=== PATIENT | male | born 1985 | race Caucasian/White ===

== ENCOUNTER 2020-02-15 12:20 | Observation (INO) | payer MEDICAID ==
[~2020-02-15] VITALS: Ht 180.3 cm; Wt 93.0 kg
[2020-02-15 14:26] LABS: CALC OSMOLALITY 272 mosm/kg (275-300); CARBON DIOXIDE 26.7 mmol/L (21.0-32.0); CHLORIDE - SERUM 103 mmol/L (98-107); GLUCOSE 97 mg/dL (74-106); SODIUM 137 mmol/L (136-145); UREA NITROGEN 11 mg/dL (7-18); eGFR NON AFRICAN AMERICAN 90 mL/min (90-120)
[2020-02-15 14:27] LABS: APTT 28.6 SECONDS (22.8-39.4)
[2020-02-15 14:28] LABS: INR 1.04 (0.85-1.17); PROTIME 13.5 SECONDS (11.6-15.0)
[2020-02-15 14:31] VITALS: BP 142/88
[2020-02-15 14:32] LABS: ALBUMIN 4.2 g/dL (3.4-5.0); ALKALINE PHOSPHATASE 77 U/L (30-120); ALT (SGPT) 24 U/L (10-68); BILIRUBIN - TOTAL 0.44 mg/dL (0.2-1.3); PROTEIN - SERUM 7.8 g/dL (6.4-8.2)
[2020-02-15 14:53] LABS: BASOPHILS 0.2 % (0-2); EOSINOPHILS 1.1 % (0-7); HEMATOCRIT 42.9 % (42.0-54.0); IMMATURE GRANULOCYTES 0.3 % (0-5); LYMPHOCYTES 19.9 % (15-50); MCH 29.9 pg (26.0-34.0); MCHC 32.6 g/dL (31.0-37.0); MCV 91.7 fL (80.0-100.0); MEAN PLATELET VOLUME 10.5 fL (7.4-10.4); MONOCYTES 7.6 % (2-11); NEUTROPHILS 70.9 % (40-80); PLATELET COUNT 269 10x3/uL (130-400); RBC 4.68 10x6/uL (4.20-6.10); RDW 13.4 % (11.5-14.5); WBC 10.6 10x3/uL (4.8-10.8)
--- NOTE | 2020-02-15 15:00 | NUR ---
ARRIVES TO UNIT PER W/C, WILLIS WRAP DRESSING TO L LOWER ARM, IV TO RFA, DRESSED IN STREET CLOTHES, WILL GET PT CHANGED AND CONSENTS DONE
[2020-02-15 15:25] VITALS: BP 142/79; Ht 180.3 cm; Wt 93.0 kg
--- NOTE | 2020-02-15 18:11 | NUR ---
TAKEN TO SURGERY PER BED, PREOP MEDS GIVEN AND PT GAVE SELF HIBACLENS BATH
[2020-02-15] MEDS ORDERED: KEFLEX500 MG PO (19:33)
[2020-02-15] MEDS ORDERED: OXYCODONE HCL5 M1 PO (19:33)
[2020-02-15] MEDS ORDERED: VISTARIL50 MG PO (19:33)
--- NOTE | 2020-02-15 20:15 | NUR ---
RECEIVED PATIENT FROM SURGERY. LEFT ULNA REPAIR THAT IS CURRENTLY IN A SLING AND HAS WILLIS WRAP TO AFFECTED AREA. FINGERS ARE WARM AND PATIENT WIGGLES ON COMMAND. VITAL SIGNS ARE STABLE, SEE FLOW SHEET. DENIES PAIN AT THIS TIME. DENIES NEEDS AT THIS TIME. PROVIDED EDUCATION TO PATIENT ABOUT WAKE UP BED. PATIENT VERBALIZES UNDERSTANDING.
[2020-02-15 20:20] VITALS: BP 151/85
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
--- NOTE | 2020-02-15 20:36 | NUR ---
CALL TO DOCTOR GRANDE CONCERNING IF PATIENT IS WAKE UP BED OR IF HE IS STAYING OVER NIGHT. DR. GRANDE STATES THAT HE IS A WAKE UP BED AND HE CAN BE DC'D TONIGHT.
--- NOTE | 2020-02-15 21:00 | NUR ---
PATIENT DISCHARGED WITH [facility]. DISCHARGE INSTRUCTIONS WITH PATIENT WELL PRESCRIPTIONS.
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
== END 2020-02-15 21:35 ==
LOC: D.ER 12:20 → OBSVTIME 14:17 → D.MS 14:17
PROVIDERS: Family Medicine; ADMIT Orthopaedic Surgery; ATTEND Orthopaedic Surgery
DX: S52.202A Unspecified fracture of shaft of left ulna, initial encounter for closed fracture (principal); Y08.02XA Assault by strike by baseball bat, initial encounter

== ENCOUNTER 2020-02-23 14:40 | Inpatient (IN) | payer MEDICAID ==
[~2020-02-23] VITALS: Ht 180.3 cm; Wt 90.7 kg
[~2020-02-23 14:40] MED LIST: KEFLEX500 MG PO; OXYCODONE HCL5 M1 PO; VISTARIL50 MG PO
[2020-02-23 15:41] LABS: BASOPHILS 0.2 % (0-2); EOSINOPHILS 2.9 % (0-7); HEMATOCRIT 42.8 % (42.0-54.0); HEMOGLOBIN 13.8 g/dL (13.5-17.5); IMMATURE GRANULOCYTES 0.3 % (0-5); LYMPHOCYTES 23.7 % (15-50); MCH 29.9 pg (26.0-34.0); MCHC 32.2 g/dL (31.0-37.0); MCV 92.6 fL (80.0-100.0); MEAN PLATELET VOLUME 9.3 fL (7.4-10.4); MONOCYTES 7.1 % (2-11); NEUTROPHILS 65.8 % (40-80); PLATELET COUNT 297 10x3/uL (130-400); RBC 4.62 10x6/uL (4.20-6.10); RDW 13.4 % (11.5-14.5); WBC 9.7 10x3/uL (4.8-10.8)
[2020-02-23 16:02] LABS: APTT 32.8 SECONDS (22.8-39.4); INR 1.02 (0.85-1.17); PROTIME 13.4 SECONDS (11.6-15.0)
[2020-02-23 16:07] LABS: ALBUMIN 3.3 g/dL (3.4-5.0); ALKALINE PHOSPHATASE 80 U/L (30-120); ALT (SGPT) 23 U/L (10-68); BILIRUBIN - TOTAL 0.22 mg/dL (0.2-1.3); CALC OSMOLALITY 276 mosm/kg (275-300); CALCIUM 8.5 mg/dL (8.5-10.1); CHLORIDE - SERUM 106 mmol/L (98-107); CREATININE - SERUM 0.9 mg/dL (0.6-1.3); GLUCOSE 86 mg/dL (74-106); POTASSIUM - SERUM 4.3 mmol/L (3.5-5.1); PROTEIN - SERUM 7.2 g/dL (6.4-8.2); SODIUM 140 mmol/L (136-145); UREA NITROGEN 9 mg/dL (7-18); eGFR NON AFRICAN AMERICAN > 90 mL/min (90-120)
[2020-02-23 16:37] VITALS: BP 130/87; BMI 27.9
--- NOTE | 2020-02-23 17:07 | NUR ---
GOING TO THE OR VIA BED.
--- NOTE | 2020-02-23 18:01 | NUR ---
PT HANDS AND FINGER NAILS NOTABLY DIRTY. FULL BETADINE SCRUB AND PAINT FROM UPPER ARM TO FINGERTIPS CIRCUMFERENTIALLY. SMALL STRAIGHT PUNCTURE WOUND NOTED BESIDE OPEN WOUND. DRIED BLOOD NOTED ON LEFT SIDE OF PT HEAD. PT MAINTAINS THAT HE FELL LAST NIGHT AND OPENED THE WOUND IN ITS ENTIRETY.
--- NOTE | 2020-02-23 18:45 | NUR ---
BACK FROM SURGERY, CALCINE FURNACE TENDER STARTED. RT ARM IS IN A SLING, CAN MOVE HIS FINGERS.
--- NOTE | 2020-02-23 20:23 | NUR ---
REC'D IN BED EYES CLOSED RESP. DEEP AND EVEN.POSTERIOR SPLINT ACEWRAP DRSG. DRY AND INTACT WILL CONTINUE TO MONITOR FOR ANY CHGES IN NEUROVASCULAR STATUS AND FOLLOW CURRENT PLAN OF CARE.
[2020-02-23 20:37] VITALS: BP 131/85
[2020-02-24 00:50] VITALS: BP 125/79
[2020-02-24 06:48] VITALS: BP 129/82
--- NOTE | 2020-02-24 06:50 | NUR ---
ALERT AND ORIENTED. NO C/O PAIN, DILAUDID SOLDER MAKING SUPERVISOR MANAGING PAIN AT THIS TIME. NO S/S OF ACUTE DISTRESS NOTED. POD #1 LEFT FOREARM, DRESSING C/D/I. ARM IN SLING. SWELLING TO LEFT HAND PRESENT. IV TO RIGHT FOREARM, 1/2 NS INFUSING @ 50ML/HR. SITE PATENT WITHOUT REDNESS OR SWELLING. UP WITH ASSIST. DENIES ANY NEEDS AT THIS TIME. CALL LIGHT IN REACH. WILL CONTINUE TO MONITOR.
[2020-02-24 07:09] LABS: HEMATOCRIT 41.7 % (42.0-54.0); HEMOGLOBIN 13.3 g/dL (13.5-17.5)
[2020-02-24 08:24] VITALS: BP 113/73
--- NOTE | 2020-02-24 11:16 | OP ---
PATIENT NAME: AUGUSTINA GILBERT MEDICAL RECORD: [id number] :83 LOCATION:D.MS [facility]209 ADMISSION DATE: SURGEON: MIMA MCCARTHY MD DATE OF OPERATION: 02/23/2020 PREOPERATIVE DIAGNOSIS: Complete dehiscence of the left forearm wound with slight loosening of previous internal fixation. PREOPERATIVE DIAGNOSIS: Complete dehiscence of the left forearm wound with slight loosening of previous internal fixation. PROCEDURE: 1. Irrigation and debridement of open wound with primary closure. 2. Re-tightening of previously placed fixation plate. SURGEON: Mima Mccarthy MD POST ANESTHESIA NURSE: APPLE Moseley INTRAOPERATIVE COMPLICATIONS: None. SUMMARY OF PATHOLOGIC FINDINGS: Consistent with the preoperative radiographs, it did appear that part of the screws might have loosened; however, they tensioned back nicely re-reducing the patient's original fracture back to anatomic as it was seen in the postop films. INDICATIONS: This is a 34-year-old gentleman who evidently had an ulna fixed by Dr. Miramontes 5 days ago. Under circumstances not quite clear, he evidently fell yesterday reopening his wound and it does appear he caused a small puncture wound secondarily to the incision site. He presented to an outside hospital, he was thusly transferred here where he was then taken to the operating room for I&D and closure as outlined below. OPERATIVE SUMMARY IN DETAIL: After obtaining the appropriate preoperative orthopedic surgery consent as well as anesthetic consultation, evaluation and clearance, the patient was brought to the operating room and placed in the operating table in supine position. After adequate general laryngeal mask airway was administered, tourniquet was placed over the proximal aspect of the patient's left upper extremity. It was not utilized during the case. Left upper extremity was prepped and draped in a routine sterile fashion using Betadine paint and scrub. Attention was first turned to simple irrigation. After a simple irrigation, dissection was carried down to the plate. Some of the proximal screws did appear to be slightly loosened. These were re-tensioned without stripping and the fixation seemed to be solid and adequate. Therefore, no attempts were made to replace the plate as it did appear, again it was solid. Fluoroscopy was utilized, it showed improvement of the fixation over that that was seen in the ER. At this point, substantial amount of irrigation were carried out to remove all clot, all kwz-pilxts-hqrdcuyls tissue and any foreign material. After substantial irrigation was carried out, #1 Vicryl was then used to reapproximate the subcutaneous closure, it was not too tight. There was fear of perhaps over tensioning; however, it remained soft, multiple guillermo were then used to reapproximate finally. Having completed this, sterile dressings were applied. The patient was awakened, taken to recovery room in stable condition. All final needle and sponge counts were correct. OPERATIVE REPORT [id number] AUGUSTINA GILBERT TRANSINT:[id number] Voice Confirmation ID: [id number] DOCUMENT ID: [id number] SHARI PAULINO, MIMA THOMPSON at 1116 CC: [id number] DICTATION DATE: 02/23/201752 CARE CONNECTOR: 02/24/20 0232 [facility] [address] [place] [address]
[2020-02-24 12:14] VITALS: BP 116/75
[2020-02-24 16:45] VITALS: BP 123/59
--- NOTE | 2020-02-24 18:48 | NUR ---
RESTING IN BED WITH EYES OPEN. NO C/O PAIN. NO S/S OF ACUTE DISTRESS NOTED. DENIES ANY NEEDS AT THIS TIME. CALL LIGHT IN REACH. WILL CONTINUE TO MONITOR.
--- NOTE | 2020-02-24 19:50 | NUR ---
I have reviewed this patient and I concur with the Shift Assessment completed by the Licensed Practical Nurse today this shift.
[2020-02-24 20:57] VITALS: BP 117/79
[2020-02-25 01:00] VITALS: BP 109/70
[2020-02-25 06:19] LABS: HEMOGLOBIN 12.4 g/dL (13.5-17.5)
[2020-02-25 06:30] VITALS: BP 112/86
--- NOTE | 2020-02-25 07:05 | NUR ---
ALERT AND ORIENTED. NO C/O PAIN. NO S/S OF ACUTE DISTRESS NOTED. POD #2 LEFT FOREARM WOUND REPAIR, DRESSING C/D/I. IV TO RIGHT FOREARM, 1/2 NS INFUSING @ 100ML/HR. SITE PATENT WITHOUT REDNESS OR SWELLING. DENIES ANY NEEDS AT THIS TIME. CALL LIGHT IN REACH. WILL CONTINUE TO MONITOR.
[2020-02-25 08:45] VITALS: BP 110/68
--- NOTE | 2020-02-25 08:45 | NUR ---
PT C/O PAIN, 05/10. GAVE VISTARIL AND OXYCODONE FOR PAIN.
[2020-02-25 09:19] LABS: CALC OSMOLALITY 275 mosm/kg (275-300); CALCIUM 8.5 mg/dL (8.5-10.1); CARBON DIOXIDE 26.6 mmol/L (21.0-32.0); CHLORIDE - SERUM 105 mmol/L (98-107); GLUCOSE 87 mg/dL (74-106); POTASSIUM - SERUM 4.1 mmol/L (3.5-5.1); SODIUM 139 mmol/L (136-145); UREA NITROGEN 10 mg/dL (7-18); eGFR NON AFRICAN AMERICAN 90 mL/min (90-120)
[2020-02-25 09:25] LABS: BASOPHILS 0.2 % (0-2); EOSINOPHILS 4.6 % (0-7); IMMATURE GRANULOCYTES 0.2 % (0-5); LYMPHOCYTES 33.4 % (15-50); MCH 29.2 pg (26.0-34.0); MCHC 31.5 g/dL (31.0-37.0); MCV 92.9 fL (80.0-100.0); MEAN PLATELET VOLUME 10.4 fL (7.4-10.4); MONOCYTES 8.9 % (2-11); NEUTROPHILS 52.7 % (40-80); PLATELET COUNT 309 10x3/uL (130-400); RBC 4.21 10x6/uL (4.20-6.10); RDW 13.3 % (11.5-14.5); WBC 8.1 10x3/uL (4.8-10.8)
--- NOTE | 2020-02-25 13:15 | NUR ---
I have reviewed this patient and I concur with the Shift Assessment completed by the Licensed Practical Nurse today this shift.
[2020-02-25 13:28] VITALS: BP 104/64
[2020-02-25 17:14] VITALS: BP 106/59
--- NOTE | 2020-02-25 19:02 | NUR ---
ALERT AND ORIENTED. NO C/O PAIN. NO S/S OF ACUTE DISTRESS NOTED. DENIES ANY NEEDS AT THIS TIME. CALL LIGHT IN REACH. WILL CONTINUE TO MONITOR.
[2020-02-25 22:42] VITALS: BP 112/66
[2020-02-26 01:11] VITALS: BP 114/69
--- NOTE | 2020-02-26 06:06 | NUR ---
I have reviewed this patient and I concur with the Shift Assessment completed by the Licensed Practical Nurse today this shift.
[2020-02-26 07:20] VITALS: BP 113/74
--- NOTE | 2020-02-26 08:52 | NUR ---
HE IS SLEEPY, ASKED FOR PAIN MED. IT IS NOT TIME FOR PAIN MED YET. HE CLOSED HIS EYES. THE CALL LIGHT IS WITHIN REACH.
[2020-02-26 09:07] VITALS: BP 116/75
[2020-02-26 13:45] VITALS: BP 127/71
[2020-02-26 17:56] VITALS: BP 113/69
[2020-02-26 20:00] VITALS: BP 113/71
--- NOTE | 2020-02-26 20:00 | NUR ---
PATIENT RESTING IN BED WITH EYES CLOSED. NO S/S OF ACUTE DISTRESS. NO C/O AT THIS TIME. PATIENT HAS RIGHT FOREARM IV, 1/2 NORMAL SALINE @ 50 ML/HR. IV IS PATENT WITHOUT REDNESS, SWELLING, OR TENDERNESS. PATIENT HAS BANDAGE ON AFFECTED ARM, DRESSING C/D/I. PATIENT AMBULATES TO THE BATHROOM. CALL LIGHT WITHIN REACH. WILL CONTINUE TO MONITOR.
[2020-02-27] VITALS: BP 105/74
--- NOTE | 2020-02-27 03:53 | NUR ---
I have reviewed this patient and I concur with the Shift Assessment completed by the Licensed Practical Nurse today this shift.
[2020-02-27 04:00] VITALS: BP 96/63
[2020-02-27 06:53] LABS: BASOPHILS 0.3 % (0-2); EOSINOPHILS 6.2 % (0-7); HEMATOCRIT 40.3 % (42.0-54.0); HEMOGLOBIN 12.9 g/dL (13.5-17.5); IMMATURE GRANULOCYTES 0.3 % (0-5); LYMPHOCYTES 34.5 % (15-50); MCH 29.3 pg (26.0-34.0); MCV 91.4 fL (80.0-100.0); MEAN PLATELET VOLUME 10.1 fL (7.4-10.4); NEUTROPHILS 49.7 % (40-80); PLATELET COUNT 324 10x3/uL (130-400); RBC 4.41 10x6/uL (4.20-6.10); RDW 12.9 % (11.5-14.5); WBC 6.5 10x3/uL (4.8-10.8)
--- NOTE | 2020-02-27 07:00 | NUR ---
PT IS RESTING IN BED WITH EYES CLOSED. RESPIRATIONS ARE EVEN AND UNLABORED. PT IS EASILY AROUSED WITH VERBAL STIMULATION. PT IS AAO X 4 UPON AROUSAL. DRESSING TO LEFT ARM IS NOTED AND CDI. PT REPORTS PAIN TO LEFT ARM. WILL ADDRESS. SEE EMAR. PT DENIES PRESENCE OF N/V/DYSPNEA. PT DENIES PRESENCE OF NUMBNESS/TINGLING TO BUE AND BLE. BED IS IN THE LOWEST POSITION. CALL LIGHT AND BEDSIDE TABLE ARE WITIHN REACH. SIDE RAILS X 2. PT DENIES FURTHER NEEDS. WILL CONT TO MONITOR.
[2020-02-27 13:25] VITALS: Ht 180.3 cm; Wt 90.7 kg
[2020-02-27] MEDS ORDERED: VISTARIL50 MG PO (13:55)
[2020-02-27] MEDS ORDERED: OXYCODONE HCL5 M1 PO (13:55)
[2020-02-27] MEDS ORDERED: DURICEF500 MG PO (13:56)
--- NOTE | 2020-02-27 15:01 | MORECARE ---
CASE MANAGEMENT DISCHARGE SUMMARY PATIENT: AUGUSTINA GILBERT UNIT: [id number] ADM DATE: 02/24/20 AGE: 34 : 84 SEX: M ROOM/BED: D.2209 AUTHOR: FADI HAYES PHYSICIAN: REFERRING PHYSICIAN: MIMA MCCARTHY MD DATE OF SERVICE: 02/27/20 Discharge Plan Patient Name: AUGUSTINA GILBERT Facility: [facility]:[place] : 1985 Planned Disposition: Home or Self Care Anticipated Discharge Date: Discharge Date: Expected LOS: Initial Reviewer: [email or web address] Initial Review Date: 02/24/2020 Generated: 02/27/20 4:01 pm Patient Name: AUGUSTINA GILBERT Page [id number] at 1501 All edits/amendments must be made on the electronic document DICTATION DATE: 02/27/20 1501 SOLE STITCHER HAND: KARLA 02/27/20 1501 RPT#: [id number] DC DATE: STATUS: ADM IN [facility] [address] [place] [address] END OF REPORT
--- NOTE | 2020-02-27 15:10 | MORECARE ---
CASE MANAGEMENT DISCHARGE SUMMARY PATIENT: AUGUSTINA GILBERT UNIT: [id number] ADM DATE: 02/24/20 AGE: 34 : 83 SEX: M ROOM/BED: D.2209 AUTHOR: FADI HAYES PHYSICIAN: REFERRING PHYSICIAN: MIMA MCCARTHY MD DATE OF SERVICE: 02/27/20 Discharge Plan Patient Name: AUGUSTINA GILBERT [facility] [facility] 1985 Planned Disposition: Home or Self Care Anticipated Discharge Date: Discharge Date: Expected LOS: Initial Reviewer: [email or web address] Initial Review Date: 02/24/2020 Generated: 02/27/20 4:10 pm DCPIA - Discharge Planning Initial Assessment Updated by [email or web address]: Sherrill Yi on 02/27/20 3:01 pm * Is the patient Alert and Oriented? Yes * How many steps to enter\exit or inside your home? * PCP clif * Pharmacy [facility] [place] * Preadmission Environment Home with Family * ADLs Independent * Equipment None * List name and contact numbers for known caregivers / representatives who currently or will assist patient after discharge: (mother)[phone] * Verbal permission to speak to the caregivers and representatives has been obtained from the patient. N/A * Community resources currently utilized None * Additional services required to return to the preadmission environment? No * Can the patient safely return to the preadmission environment? Yes * Has this patient been hospitalized within the prior 30 days at any hospital? No Last DP export: 02/27/20 2:01 p Patient Name: AUGUSTINA GILBERT Page [id number] at 1510 All edits/amendments must be made on the electronic document DICTATION DATE: 02/27/20 151 SENIOR CORE JAVA DEVELOPER: KARLA 02/27/20 1510 RPT#: [id number] DC DATE: STATUS: ADM IN [facility] [address] [place] [address] END OF REPORT
[2020-02-27 15:13] VITALS: BP 125/75
--- NOTE | 2020-02-27 15:19 | MORECARE ---
CASE MANAGEMENT DISCHARGE SUMMARY PATIENT: AUGUSTINA GILBERT UNIT: [id number] ADM DATE: 02/24/20 AGE: 34 : 83 SEX: M ROOM/BED: D.2209 AUTHOR: ABIGAIL,DOC PHYSICIAN: REFERRING PHYSICIAN: MIMA MCCARTHY MD DATE OF SERVICE: 02/27/20 Discharge Plan Patient Name: AUGUSTINA GILBERT Facility: [facility]:[place] : 1985 Planned Disposition: Home or Self Care Anticipated Discharge Date: Discharge Date: Expected LOS: Initial Reviewer: [email or web address] Initial Review Date: 02/24/2020 Generated: 02/27/20 4:19 pm Comments DCP- Discharge Planning Updated by [email or web address]: Sherrill Yi on 02/27/20 2:[address] Patient Name: AUGUSTINA GILBERT Admission Status: ER Accout number: [id number] Admission Date: 02-24-2020 : 1985 Admission Diagnosis:DISRUPTION OF WOUND, UNSPECIFIED, INITIAL ENCOUNTER Attending: MIMA MCCARTHY Current LOS: 3 Anticipated DC Date: Planned Disposition: Home or Self Care Primary Insurance: [place] [employer] [facility] Discharge Planning Comments: CM met with patient to complete initial dc planning assessment. CM educated patient on the CM role and verbal consent given by patient to complete assessment. Patient lives at home in [place] where he is independent with his care. At discharge patient plans to return home and feels this is a safe discharge. CM discussed availability of home health, rehab services, and medical equipment. Patient denied known discharge needs at this time. He is trying to find a ride home. I am trying to get a hold of Ms Webster at [phone]. CM will continue to follow and will assist as needed with dc plans/needs. Forging Die Sinker: Sherrill Yi DCPIA - Discharge Planning Initial Assessment Updated by [email or web address]: Sherrill Yi on 02/27/20 3:01 pm * Is the patient Alert and Oriented? Yes * How many steps to enter\exit or inside your home? * PCP clif * Pharmacy [facility] in [place] * Preadmission Environment Home with Family * ADLs Independent * Equipment None * List name and contact numbers for known caregivers / representatives who currently or will assist patient after discharge: (mother)[phone] * Verbal permission to speak to the caregivers and representatives has been obtained from the patient. N/A * Community resources currently utilized None * Additional services required to return to the preadmission environment? No * Can the patient safely return to the preadmission environment? Yes * Has this patient been hospitalized within the prior 30 days at any hospital? No Last DP export: 02/27/20 2:10 p Patient Name: AUGUSTINA GILBERT Page 24557 at 1519 All edits/amendments must be made on the electronic document DICTATION DATE: 02/27/201518 HOSE OPERATOR: KARLA 02/27/201518 RPT#: [id number] DC DATE: STATUS: ADM IN [facility] [address] [place] [address] END OF REPORT
[2020-02-27 15:27] VITALS: BP 131/82
--- NOTE | 2020-02-27 15:30 | NUR ---
ALL DISCHARGE INSTRUCTIONS COVERED WITH PT. PT GIVEN (3) PRINTED RX. PT DENIES FURTHER QUESTIONS/CONCERNS/NEEDS. ALL DISCHARGE PAPERS SIGNED. PIV TO RIGHT FA REMOVED WITH CATHETER TIP INTACT. DRESSING APPLIED. WILL WAIT TO TRANSPORT PT FROM ROOM [facility] IS AVAILABLE.
--- NOTE | 2020-02-27 16:03 | NUR ---
PT TRANSPORTED FROM ROOM VIA WHEELCHAIR ESCORTED BY THIS NURSE FOR TRANSPORTATION TO HOME. PT STATES THAT HE HAS ALL PERSONAL BELONGINGS AND DENIES FURTHER QUESTIONS/CONCERNS/NEEDS AT THIS TIME. [facility] AT FRONT OF HOSPITAL WAITING FOR PATIENT FOR TRANSPORTATION. PT THANKS THIS NURSE FOR CARE GIVEN DURING THIS SHIFT.
--- NOTE | 2020-02-29 12:30 | MORECARE ---
CASE MANAGEMENT DISCHARGE SUMMARY PATIENT: AUGUSTINA GILBERT UNIT: [id number] ADM DATE: 02/24/20 AGE: 34 : 83 SEX: M ROOM/BED: D.2209 AUTHOR: ABIGAIL,DOC PHYSICIAN: REFERRING PHYSICIAN: MIMA MCCARTHY MD DATE OF SERVICE: 02/29/20 Discharge Plan Patient Name: AUGUSTINA GILBERT Facility: [facility]:[place] : 1985 Planned Disposition: Home or Self Care Anticipated Discharge Date: Discharge Date: 02/27/2020 Expected LOS: 0 Initial Reviewer: [email or web address] Initial Review Date: 02/24/2020 Generated: 02/29/20 1:30 pm Comments DCP- Discharge Planning Updated by [email or web address]: Sherrill Yi on 02/27/20 2:[address] Patient Name: AUGUSTINA GILBERT Admission Status: ER Accout number: [id number] Admission Date: 02-24-2020 : 1985 Admission Diagnosis:DISRUPTION OF WOUND, UNSPECIFIED, INITIAL ENCOUNTER Attending: MIMA MCCARTHY Current LOS: 3 Anticipated DC Date: Planned Disposition: Home or Self Care Primary Insurance: [place] [employer] [facility] Discharge Planning Comments: CM met with patient to complete initial dc planning assessment. CM educated patient on the CM role and verbal consent given by patient to complete assessment. Patient lives at home in [place] where he is independent with his care. At discharge patient plans to return home and feels this is a safe discharge. CM discussed availability of home health, rehab services, and medical equipment. Patient denied known discharge needs at this time. He is trying to find a ride home. I am trying to get a hold of Ms Webster at [phone]. CM will continue to follow and will assist as needed with dc plans/needs. Emergency Specialist: Sherrill Yi DCPIA - Discharge Planning Initial Assessment Updated by [email or web address]: Sherrill Yi on 02/27/20 3:01 pm * Is the patient Alert and Oriented? Yes * How many steps to enter\exit or inside your home? * PCP clif * Pharmacy [facility] in [place] * Preadmission Environment Home with Family * ADLs Independent * Equipment None * List name and contact numbers for known caregivers / representatives who currently or will assist patient after discharge: (mother)[phone] * Verbal permission to speak to the caregivers and representatives has been obtained from the patient. N/A * Community resources currently utilized None * Additional services required to return to the preadmission environment? No * Can the patient safely return to the preadmission environment? Yes * Has this patient been hospitalized within the prior 30 days at any hospital? No Last DP export: 02/27/20 2:19 p Patient Name: AUGUSTINA GILBERT Page [phone] at 1230 All edits/amendments must be made on the electronic document DICTATION DATE: 02/29/20 1230 EMPLOYEE HEALTH RN: KARLA 02/29/20 1230 RPT#: [id number] DC DATE:02/27/20 STATUS: DIS IN [facility] [address] [place] [address] END OF REPORT
== END 2020-02-27 16:12 | disposition home or self-care (01) | DRG 908 ==
LOC: D.ER 14:40 → D.OPS 14:40 → D.MS 14:40 → EDSTATUS 15:16 → D.MS 15:17 → D.OPS 02-24 15:23 → D.MS 02-24 15:23
PROVIDERS: Family Medicine; Orthopaedic Surgery; ADMIT Orthopaedic Surgery; ATTEND Orthopaedic Surgery
PROC: 0JQH0ZZ Repair Left Lower Arm Subcutaneous Tissue and Fascia, Open Approach (ICD-10-PCS; principal; 2020-02-23 17:30)
PROC: 3E10X8Z Irrigation of Skin and Mucous Membranes using Irrigating Substance (ICD-10-PCS; 2020-02-23 17:30)
DX: T81.30XA Disruption of wound, unspecified, initial encounter (principal); T84.123A Displacement of internal fixation device of bone of left forearm, initial encounter; Y83.9 Surgical procedure, unspecified as the cause of abnormal reaction of the patient, or of later complication, without mention of misadventure at the time of the procedure; Z86.73 Personal history of transient ischemic attack (TIA), and cerebral infarction without residual deficits